=== PATIENT | male | born 1990 | race Caucasian/White ===

== ENCOUNTER 2016-05-01 21:52 | Emergency (ER) | payer SELFPAY ==
[2016-05-01 22:11] VITALS: TEMP 97.6; BMI 21.4
[2016-05-01] MEDS ORDERED: Lidocaine 2%-Epinephrine 1:100,000 20ml vial INF ONE (22:21)
[2016-05-01] MEDS ORDERED: OXYCODONE HCL 5 MG TABLET PO ONE (22:21)
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
[2016-05-01] MEDS ORDERED: CLINDAMYCIN 150 MG CAP PO ONE (22:25)
[2016-05-01 22:34] LABS: AUTOMATED BASOPHIL 0.4 % (0-2); AUTOMATED EOSINOPHIL 0.8 % (0-5); AUTOMATED LYMPH 26.8 % (17-44); AUTOMATED MONOCYTE 5.6 % (3-10); AUTOMATED NEUTROPHIL 66.4 % (45-76); MPV 8.5 fL (7.4-10.4)
[2016-05-01 22:43] LABS: BLOOD UREA NITROGEN 10 MG/DL (9-20); CALCULATED OSMOLALITY 265 MOs/Kg (270-290); CHLORIDE 102 mEq/L (98-107); GLUCOSE 71 mg/dL (70-99); SODIUM LEVEL 139 mEq/L (137-146); TOTAL PROTEIN 7.5 G/DL (6.3-8.2)
[2016-05-01 23:35] LABS: ETOH-MGDL < 10 mg/dL
[2016-05-02 00:02] VITALS: BP 124/70; PULSE 78
== END 2016-05-02 | disposition home or self-care (01) ==
LOC: ED 21:52
DX: R55 Syncope and collapse (principal); S01.01XA Laceration without foreign body of scalp, initial encounter; K02.9 Dental caries, unspecified; W19.XXXA Unspecified fall, initial encounter; Y93.9 Activity, unspecified
CPT/HCPCS: 12001; 36415; 80053; 80307; 85025; 99283; J3490